=== PATIENT | female | born 1980 | race Caucasian/White ===

== ENCOUNTER 2022-03-08 08:36 | Emergency (ER) | payer BC, OTHER ==
[2022-03-08 08:51] VITALS: RESP 16; BMI 19.3
[2022-03-08] MEDS ORDERED: KETOROLAC TROMETHAMINE 15 MG/ML VIAL IVPUSH ONE (08:56)
[2022-03-08] MEDS ORDERED: LACTATED RINGERS SOLUTION 1000 ML INFUS.BAG IV ONE (08:56)
[2022-03-08] MEDS ORDERED: SODIUM CHLORIDE 0.9% 1000 ML INFUS.BAG IV ONE ×3 (09:07→10:59)
[2022-03-08] MEDS ORDERED: KETOROLAC TROMETHAMINE 15 MG/ML VIAL ONE (09:08)
[2022-03-08 09:25] LABS: HEMATOCRIT 39.1 % (35.4-49); HEMOGLOBIN 13.3 G/dL (11.7-16.9); MCH 31.8 pg (25.7-33.7); MEAN CELL VOLUME 93.2 fl (80-96); MEAN PLT VOLUME 8.8 fl (7.5-11.1); PLATELET COUNT 248.4 10^3/uL (134-434); RBC 4.19 10^6/uL (4.00-5.60); RDW 13.4 % (11.9-15.9); WHITE BLOOD COUNT 8.2 10^3/uL (4.0-10.8)
[2022-03-08 09:38] LABS: ALBUMIN 4.9 g/dl (3.4-5.0); CALCIUM 9.4 mg/dl (8.5-10); CREATININE 0.8 mg/dl (0.55-1.3); TOT PROT 6.9 g/dl (6.4-8.2)
[2022-03-08 09:51] LABS: PLATELET ESTIMATE ADEQUATE
[2022-03-08] MEDS ORDERED: ACETAMINOPHEN 1000 MG/100 ML BAG IVPB ONE (10:12)
[2022-03-08] MEDS ORDERED: ACETAMINOPHEN INJECTION 100 ML IVPB ONE (10:16)
[2022-03-08] MEDS ORDERED: ONDANSETRON 4 MG/2 ML VIAL IVPUSH ONE (10:46)
[2022-03-08] MEDS ORDERED: morphine CARPU-JECT 2 MG/1 ML DISP.SYRIN IVPUSH ONE (10:46)
[2022-03-08 10:50] LABS: HCG,QUALITATIVE URINE Negative
[2022-03-08] MEDS ORDERED: morphine SULFATE 4 MG/ML VIAL ONE (11:00)
[2022-03-08] MEDS ORDERED: ONDANSETRON 4 MG/2 ML VIAL ONE (11:00)
[2022-03-08 14:37] LABS: CALCIUM 8.6 mg/dl (8.5-10); CREATININE 0.7 mg/dl (0.55-1.3)
[2022-03-08 16:27] VITALS: BP 112/62; PULSE 82; TEMP 98.3
== END 2022-03-08 17:13 | disposition short-term general hospital (02) ==
LOC: FER 08:36 → EDSEX 08:36 → FER 17:13
PROC: 3E0333Z Introduction of Anti-inflammatory into Peripheral Vein, Percutaneous Approach (ICD-10-PCS; principal; 2022-03-08)
PROC: 3E0333Z Introduction of Anti-inflammatory into Peripheral Vein, Percutaneous Approach (ICD-10-PCS; 2022-03-08)
PROC: 3E033NZ Introduction of Analgesics, Hypnotics, Sedatives into Peripheral Vein, Percutaneous Approach (ICD-10-PCS; 2022-03-08)
PROC: 3E033GC Introduction of Other Therapeutic Substance into Peripheral Vein, Percutaneous Approach (ICD-10-PCS; 2022-03-08)
DX: E87.1 Hypo-osmolality and hyponatremia (principal); E86.0 Dehydration; R19.09 Other intra-abdominal and pelvic swelling, mass and lump
CPT/HCPCS: 0241U-QW; 36415; 74176-TC; 76775-TC; 76830-TC; 80048; 80053; 81003; 84703; 85027; 87086; 87186; 99285-25